=== PATIENT | female | born 1970 | race Caucasian/White ===

== ENCOUNTER 2017-02-09 10:52 | Emergency (ER) | payer OTHER ==
--- NOTE | 2017-02-09 11:04 | Emergency Department Record ---
History of Present Illness - General Chief complaint: Extremity Problem Stated complaint: LEFT ARM PAIN/INJURY Time Seen by Provider: 02/09/17 10:58 Source: Patient Mode of Arrival: Ambulatory Limitations: No limitations - History of Present Illness Initial comments: 47 yo female presents with left thumb pain from an injury on Sunday. She was carrying a duffel bag and it slipped. She caught the bag awkwardly with the left hand pulling the thumb back. She has had pain since that time. She is right handed. No warmth or redness. She has pain with gripping and ROM. MD Complaint: Extremity pain -: Hour(s) Location: Left History of Same: No -: Yes Arthralgia Quality: Aching Consistency: Constant Improves with: Elevation, Immobilization Worsens with: Exertion, Palpation Associated Symptoms: Denies other symptoms - Related Data Home Medications Medication Instructions Recorded Confirmed Last Taken Loratadine [Claritin] 10 mg PO DAILY 02/09/17 02/09/17 02/09/17 Previous Rx's Medication Instructions Recorded Hydrocodone/Acetaminophen [[place] 1 each PO Q6H #15 tablet 02/09/17 5-325 Tablet] Allergies Allergy/AdvReac Type Severity Reaction Status Date / Time clarithromycin [From Biaxin] AdvReac NAUSEA AND Verified 02/09/17 11:04 VOMITING codeine AdvReac NAUSEA AND Verified 02/09/17 11:04 VOMITING tetracycline AdvReac DIZZINESS Verified 02/09/17 11:04 Review of Systems Constitutional: Denies: Chills, Fever, Malaise, Weakness Eyes: Denies: Eye discharge ENT: Denies: Congestion, Throat pain Respiratory: Denies: Cough Cardiovascular: Denies: Chest pain, Syncope Endocrine: Denies: Fatigue Gastrointestinal: Denies: Abdominal pain, Diarrhea, Nausea, Vomiting Genitourinary: Denies: Dysuria, Urgency Musculoskeletal: Reports: As per HPI, Arthralgia, Myalgia. Denies: Back pain Skin: Denies: Bruising, Change in color, Rash Neurological: Denies: Headache Psychiatric: Denies: Anxiety Hematological/Lymphatic: Denies: Blood Clots, Easy bleeding, Easy bruising, Swollen glands Physical Exam - General General Appearance: Alert, Oriented x3, Cooperative, No acute distress Limitations: No limitations - Head Head exam: Normal inspection - Eye Eye exam: Normal appearance. negative: Conjunctival injection - ENT ENT exam: Normal exam Ear exam: Normal external inspection Nasal Exam: Normal inspection - Neck Neck exam: Normal inspection - Cardiovascular Peripheral Pulses: 2+: Radial (L) - Rectal Rectal exam: Deferred - exam: Deferred - Extremities Extremities exam: Normal inspection, Full ROM, Normal capillary refill, Tenderness. negative: Joint swelling Image of Hand: 1 - tender from MCP to radius, no skin changes, no swelling. Pain with axial load and ROM - Back Back exam: Reports: Full ROM. Denies: CVA tenderness (R), CVA tenderness (L) - Neurological Neurological exam: Alert, Oriented X3 - Psychiatric Psychiatric exam: Normal affect, Normal mood. negative: Agitated, Anxious - Skin Skin exam: Dry, Intact, Normal color, Warm. negative: Cyanosis, Diaphoretic, Erythema, Mottled Course - Reevaluation(s) Reevaluation #1: 02/09/17 11:43 XR report was negative for acute injury Disposition Disposition: Discharge Clinical Impression: Left thumb sprain Qualifiers: Encounter type: initial encounter Sprain of finger site: unspecified site Qualified Code(s): S63.602A - Unspecified sprain of left thumb, initial encounter Disposition: Home, Self-Care Condition: (1) Good Instructions: Skier's Thumb (ED) Additional Instructions: Keep elevated to avoid swelling Use the splint for support and comfort Follow up with your doctor and Dr Snow if the pain continues Prescriptions: Hydrocodone/Acetaminophen [[place] 5-325 Tablet] 1 each PO Q6H #15 tablet Referrals: DANNI SNOW [DOCTOR OF OSTEOPATH] - [facility] [Provider Group] Forms: Patient Portal Access Time of Disposition: 11:42
[2017-02-09] MEDS ORDERED: IBUPROFEN 600 MG TABLET PO ONE (11:52)
--- NOTE | 2017-02-12 18:23 | RADIOLOGY REPORT ---
EXAM: HAND, LEFT 3 VIEWS HISTORY: LEFT THUMB INJURY AND PAIN. TECHNIQUE: Three-view left hand. COMPARISON: None. ENCOUNTER: Initial. FINDINGS: No acute fracture or dislocation. Minimal osteoarthritic change of the DIPs. Soft tissues are unremarkable. There are one or two tiny ossicles near the STT joint, likely degenerative. IMPRESSION: NO ACUTE PROCESS, LEFT HAND. JOB NUMBER: [id number] MTDD
== END 2017-02-09 12:37 | disposition home or self-care (01) ==
LOC: ER 10:52
DX: S63.602A Unspecified sprain of left thumb, initial encounter (principal); X58.XXXA Exposure to other specified factors, initial encounter; Y93.89 Activity, other specified; Y92.89 Other specified places as the place of occurrence of the external cause
CPT/HCPCS: 99283

== ENCOUNTER 2019-01-10 22:56 | Emergency (ER) | payer OTHER ==
[2019-01-10] MEDS ORDERED: ONDANSETRON HCL IV 4 MG/2 ML VIAL IVP ONE (23:01)
[2019-01-10] MEDS ORDERED: ACETAMINOPHEN 1,000 MG/100 ML BTL IVPB ONE (23:01)
[2019-01-10] MEDS ORDERED: KETOROLAC 30 MG/ML VIAL IVP ONE (23:01)
[2019-01-10] MEDS ORDERED: 0.9 % SODIUM CHLORIDE 1,000 ML BAG IV ONE (23:01)
--- NOTE | 2019-01-10 23:06 | Emergency Department Record ---
History of Present Illness - General Chief Complaint: Abdominal Pain Stated Complaint: ABD PAIN Time Seen by Provider: 01/10/19 23:00 Source: Patient, Family Mode of Arrival: Ambulatory Limitations: No limitations - History of Present Illness Initial Comments: 48 yo female presents with nausea, vomiting and abdominal pain starting 1am this morning. The nausea and vomiting continued all day. Tonight she developed a sharp pain on the right side that has persisted. She had a similar episode one week ago and then on Sunday. She has had a prior appendectomy. No blood in the vomiting or diarrhea. No hematuria. No dysuria. She reports over the last 6 months a few episodes of pain in the same area that resolved in a short time. PCP January Mackey MD Complaint: Abdominal pain -: Days(s) (1) Location: RUQ Radiation: RUQ Migration to: RUQ Quality: Sharp, Stabbing Improves With: Nothing Worsens With: Eating Context: Other Associated Symptoms: Anorexia, Diarrhea, Vomiting - Related Data Home Medications Medication Instructions Recorded Confirmed Last Taken Diclofenac Sodium 50 mg PO TID PRN 01/10/19 01/10/19 Unknown Doxycycline Monohydrate 100 mg PO BID 01/10/19 01/10/19 Unknown Norethindrone AC-Eth Estradiol 1 each PO DAILY 01/10/19 01/10/19 Unknown [Loestrin 21 1-20 Tablet] Allergies Allergy/AdvReac Type Severity Reaction Status Date / Time clarithromycin [From Biaxin] AdvReac NAUSEA AND Verified 02/09/17 11:04 VOMITING codeine AdvReac NAUSEA AND Verified 02/09/17 11:04 VOMITING tetracycline AdvReac DIZZINESS Verified 02/09/17 11:04 Review of Systems Constitutional: Denies: Chills, Fever, Malaise, Weakness Eyes: Denies: Eye discharge ENT: Denies: Congestion, Throat pain Respiratory: Denies: Cough, Dyspnea, Hemoptysis, Stridor, Wheezes Cardiovascular: Denies: Chest pain, Palpitations, Syncope Endocrine: Denies: Fatigue, Polydipsia, Polyuria Gastrointestinal: Reports: As per HPI, Abdominal pain, Diarrhea, Nausea, Vomiting. Denies: Constipation, Hematemesis, Hematochezia, Melena Genitourinary: Denies: Dysuria, Urgency Musculoskeletal: Reports: Back pain. Denies: Arthralgia, Joint swelling, Myalgia Skin: Denies: Bruising, Change in color, Rash Neurological: Denies: Headache Psychiatric: Denies: Anxiety Past Medical History - SOCIAL HISTORY Smoking Status: Never smoker Drug Use: None - RESPIRATORY Hx Respiratory Disorders: No - CARDIOVASCULAR Hx Cardio Disorders: No - NEURO Hx Neuro Disorders: No - GI Hx GI Disorders: Yes Hx Diverticulitis: Yes - Hx Genitourinary Disorders: No - ENDOCRINE Hx Endocrine Disorders: No - MUSCULOSKELETAL Hx Musculoskeletal Disorders: No - PSYCH Hx Psych Problems: No - HEMATOLOGY/ONCOLOGY Hx Hematology/Oncology Disorders: No Physical Exam - General General Appearance: Alert, Oriented x3, Cooperative, No acute distress Limitations: No limitations - Head Head exam: Atraumatic, Normal inspection - Eye Eye exam: Normal appearance, PERRL. negative: Conjunctival injection, Scleral icterus - ENT ENT exam: Normal exam, Mucous membranes moist Ear exam: Normal external inspection Nasal Exam: Normal inspection Mouth exam: Normal external inspection - Neck Neck exam: Normal inspection - Respiratory Respiratory exam: Normal lung sounds bilaterally. negative: Respiratory distress - Cardiovascular Cardiovascular Exam: Regular rate, Normal rhythm, Normal heart sounds - GI/Abdominal GI/Abdominal exam: Soft, Normal bowel sounds, Tenderness (Tender RUQ otherwise the abdomen is very soft and non tender). negative: Distended, Guarding, Rebound - Rectal Rectal exam: Deferred - exam: Deferred - Extremities Extremities exam: Normal inspection. negative: Tenderness - Back Back exam: Reports: CVA tenderness (R). Denies: CVA tenderness (L), Tenderness - Neurological Neurological exam: Alert, Oriented X3 - Psychiatric Psychiatric exam: Normal affect, Normal mood - Skin Skin exam: Dry, Intact, Normal color, Warm Course - Reevaluation(s) Reevaluation #1: The labs results were reviewed There are no acute significant abnormalities of the CBC There are no acute significant abnormalities of the CMP 01/11/19 00:04 01/11/19 01:[address] scan was reviewed There is cholelithiasis. No adjacent fat stranding or fluid. 55mm uterine fundal mass, suggests fibroid. The pain is 4/10 at this time 01/11/19 02:15 Nausea is returning as is the pain I recommend transfer for US and likely surgery consultation I BENITA Cook of the ED She accepts the patient for transfer Medical Decision Making - Lab Data Result diagrams: 01/10/19 23:15 01/10/19 23:15 Disposition Disposition: Transfer Clinical Impression: Cholelithiasis Disposition: Acute Care Hospital [place] [facility] [place] For Transfer: Biliary Colic Accepting Physician: Joey Time Discussed w/Accepting Physician: 02:20 Condition: (2) Stable Instructions: Biliary Colic (ED) Forms: Patient Portal Access Time of Disposition: 02:20 Quality - Quality Measures Quality Measures: N/A - Blood Pressure Screening Does Patient Have Any of the Following: No Blood Pressure Classification: Pre-Hypertensive BP Reading Systolic Measurement: 147 Diastolic Measurement: 82 Screening for High Blood Pressure: < Pre-Hypertensive BP, F/U Documented > [ [id number]] Pre-Hypertensive Follow-up Interventions: Referral to alternative/primary care provider.
[2019-01-10] MEDS ORDERED: HYDROMORPHONE HCL 2 MG/ML VIAL IVP ONE (23:34)
[2019-01-10 23:36] LABS: BASO % 0.3 % (0-6); EOS % 0.9 % (0-6); GRAN % 68.4 % (47-80); HEMATOCRIT 42.5 % (35.0-47.0); HEMOGLOBIN 13.5 gm/dl (11.6-16.0); LYMPH % 23.8 % (16-45); MEAN CELL VOLUME 82.7 fl (81-97); MEAN CORPUSCULAR HEMOGLOBIN 26.3 pg (27-33); MEAN CORPUSCULAR HGB CONC 31.8 g/dl (32-36); MEAN PLATELET VOLUME 9.6 fl (7.4-10.4); MONO % 6.6 % (0-9); PLATELET COUNT 544 K/uL (130-400); RED BLOOD COUNT 5.14 M/uL (3.80-5.40); RED CELL DISTRIBUTION WIDTH 16.3 % (11.5-14.5)
[2019-01-10 23:47] LABS: BLOOD UREA NITROGEN 13 mg/dL (6-20)
[2019-01-10 23:48] LABS: CREATININE 0.7 mg/dL (0.5-0.9); EST GLOMERULAR FILTRATION RATE > 60 mL/min; LIPASE 41 U/L (13-60); TOTAL PROTEIN 7.7 g/dL (6.6-8.7)
[2019-01-10 23:50] LABS: GLUCOSE,RANDOM 118 mg/dL (74-109)
[2019-01-10 23:53] LABS: ALB/GLOB RATIO 1.1 (1.1-1.8); ALBUMIN 4.1 g/dL (4.0-5.0); ALKALINE PHOSPHATASE 91 U/L (35-104); ALT/SGPT 37 U/L (<33); AST/SGOT 31 U/L (10.0-35.0)
[2019-01-11] MEDS ORDERED: HYDROMORPHONE HCL 2 MG/ML VIAL IVP ONE ×2 (00:34→02:23)
[2019-01-11] MEDS ORDERED: ONDANSETRON HCL IV 4 MG/2 ML VIAL IVP ONE (00:34)
[2019-01-11] MEDS ORDERED: 0.9 % SODIUM CHLORIDE 1000ML 1,000 ML IV ONE (01:13)
[2019-01-11] MEDS ORDERED: PROMETHAZINE HCL 12.5 MG in 0.9 % SODIUM CHLORIDE 100ML 100 ML IVPB ONE (01:45)
--- NOTE | 2019-01-14 08:01 | CT SCAN REPORT ---
EXAM: CT SCAN OF THE ABDOMEN AND PELVIS WITH CONTRAST HISTORY: RIGHT UPPER QUADRANT ABDOMINAL PAIN AND VOMITING. TECHNIQUE: Standard CT imaging of the abdomen and pelvis was performed with contrast. 85 ml of Omnipaque 300 were utilized. Comparison: 09/13/13. FINDINGS: The lung bases are clear. There is mild hepatic steatosis. There are no focal hepatic abnormalities. A small calcified stone is present dependently within the gallbladder. There is no evidence for acute cholecystitis. There is no biliary ductal dilatation. The pancreas, spleen, and adrenal glands are normal. The kidneys and ureters are normal. The aorta is normal in caliber. There is no retroperitoneal lymphadenopathy. The large and small bowel loops are normal. The appendix is surgically absent. There is no pneumoperitoneum or ascites. A 5.5 cm intramural fibroid is present at the uterine fundus. There is mild lobulation as well within the uterine body on the right suggesting fibroid formation. A 2.4 cm follicle/cyst is present within the right ovary. The urinary bladder is normal. There is a small fat containing umbilical hernia. Degenerative changes are present within the spine. No osteoblastic or osteolytic process is identified. IMPRESSION: 1. CHOLELITHIASIS WITH NO EVIDENCE FOR ACUTE CHOLECYSTITIS. 2. UTERINE FIBROIDS. 3. 2.4 CM RIGHT OVARIAN CYST/FOLLICLE. JOB NUMBER: [id number] [facility]
== END 2019-01-11 02:56 | disposition short-term general hospital (02) ==
LOC: ER 22:56
DX: K80.20 Calculus of gallbladder without cholecystitis without obstruction (principal); R19.7 Diarrhea, unspecified; R11.10 Vomiting, unspecified
CPT/HCPCS: 74177; 80053; 83690; 85025; 96361; 96365; 96366; 96375; 96376; 99285; J1885; J2405; J2550; J7030